=== PATIENT | male | born 1965 | race American Indian/Alaskan Native ===

== ENCOUNTER 2019-04-23 12:32 | Emergency (ER) | payer SELFPAY ==
[2019-04-23 12:56] VITALS: BP 184/104
[2019-04-23] MEDS ORDERED: ASPIRIN 325 MG TAB PO ONE (12:56)
--- NOTE | 2019-04-23 13:01 | Event Note ---
ED Screening Note ED Screening Note: productive cough that began two days ago chest discomfort after frequent coughing (+) fever +sob PMHx HTN takes several medications did not take bp medication today This initial assessment/diagnostic orders/clinical plan/treatment(s) is/are subject to change based on patients health status, clinical progression and re- assessment by fellow clinical providers in the ED. Further treatment and workup at subsequent clinical providers discretion. Patient/guardian urged not to elope from the ED as their condition may be serious if not clinically assessed and managed. Initial orders include: sepsis protocol
[2019-04-23] MEDS ORDERED: IBUPROFEN 600 MG TAB PO ONE (13:02)
[2019-04-23] MEDS ORDERED: SODIUM CHLORIDE 0.9% 1000 ML IV SOLN IV ONE (13:02)
--- NOTE | 2019-04-23 15:11 | XRay Report ---
CHEST PA AND LATERAL VIEWS INDICATION: productive cough, fever. COMPARISON: None. FINDINGS: Support devices: None. Heart: Within normal limits. Lungs/Pleura: No acute pulmonary or pleural findings. IMPRESSION: 1. No significant abnormality. Signer Name: Denver Stockton MD Signed: 04/23/2019 3:07 PM Workstation Name: [id number]
== END 2019-04-24 02:28 ==
LOC: ED 12:32
DX: R07.89 Other chest pain (principal); Z53.21 Procedure and treatment not carried out due to patient leaving prior to being seen by health care provider
CPT/HCPCS: 71046; 87400; 93005; 93010